=== PATIENT | male | born 1945 | race Caucasian/White ===

== ENCOUNTER → 2021-12-31 13:00 | Outpatient (CLI) | payer MEDICARE, OTHER, SELFPAY ==
[2021-12-31 14:06] LABS: COVID19 -Nasal RAPID Negative (Negative)
== END ==
PROVIDERS: Visit Provider Surgery
DX: Z20.822 Contact with and (suspected) exposure to COVID-19 (principal); Z01.812 Encounter for preprocedural laboratory examination
CPT/HCPCS: 87635; C9803

== ENCOUNTER 2022-01-01 10:19 | Day surgery (SDC) | payer MEDICARE, OTHER, SELFPAY ==
--- NOTE | 2022-01-01 | PATH_ITS ---
[facility] Accession Number: [id number] . 01 Material submitted: . colon - DESCENDING COLON POLYP . 01 Diagnosis: Descending Colon, Polyp, Biopsy: Colonic mucosa with a small benign lymphoid aggregate and no other diagnostic abnormality. Additional levels were examined. Negative for dysplasia and malignancy. MRV 01/06/2022 1648 Local . 01 Electronically signed: . Sanam Gonzalez MD, Pathologist NPI- [id number] . 01 Gross description: . DESCENDING COLON POLYP: Received in formalin is 1 fragment(s) of aquino, soft tissue measuring 0.3 x 0.2 x 0.1 cm submitted entirely in 1 cassette(s) /CPE 01/02/2022 0512 Local . 01 Pathologist provided ICD-10: K63.5 . 01 CPT . 524102 Specimen Comment: A courtesy copy of this report has been sent to [phone] Performed at: 01 [facility] [address] [place] [address] [address], [place], [place] [id number] MD Juan Cazares MD Phone: [phone]
[2022-01-01 10:45] VITALS: BP 144/83; PULSE 58; RESP 16; TEMP 36.6; O2SAT 96
[2022-01-01 10:46] VITALS: BMI 25.4
[2022-01-01] MEDS: SODIUM CHLORIDE 0.9% 1,000 ML 84 ML IV (11:09)
--- NOTE | 2022-01-01 12:41 | PM.HP.1 ---
History of Present Illness History of Present Illness Date Patient Seen: 01/01/22 Chief complaint: Colonoscopy Narrative: Follow-up 5 year colonoscopy with history of polyps Patient History Medical History (Updated 01/01/22 @ 10:45 by Hoda Hung RN) Bilateral inguinal hernia Elevated cholesterol Hx of fracture of ankle Surgical History (Updated 01/01/22 @ 10:45 by Hoda Hung RN) History of arthroplasty of finger of right hand Family & Social History Social History: household members spouse Tobacco & Substance use: Smoking Status Former smoker alcohol intake current Substance Use Type does not use Meds Home Medications and Allergies Home Medications Medication Instructions Recorded Confirmed Type aspirin 81 mg DAILY 01/01/22 01/01/22 History pravastatin 40 mg tablet 1 tab DAILY 01/01/22 01/01/22 History Allergies Allergy/AdvReac Type Severity Reaction Status Date / Time sodium penathol AdvReac Unknown Vomiting Uncoded 01/01/22 10:38 Exam Vital Signs (past 8 hours): - 01/01/22 10:45 Temperature 97.9 F Pulse Rate 58 L Respiratory Rate 16 Blood Pressure 144/83 H Pulse Oximetry 96 Oxygen Delivery Method Room Air Oxygen Delivery Method Room Air Narrative Exam Narrative: Oropharynx free of lesions Chest clear to auscultation percussion Cardiac exam reveals no S3 or murmur Assessment & Plan Assessment & Plan narrative: History of adenomatous polyps with need for follow-up colonoscopy. Risks, benefits, alternatives have been explained. Time Spent With Patient Critical Care time: I spent a total of [] minutes of critical care time on this patient's care today; this time is exclusive of procedural time.
--- NOTE | 2022-01-01 12:42 | PM.OP.COLON ---
Operative Date/Time/Diagnoses Date of procedure: 01/01/22 Pre-op diagnosis: See indication and findings Procedure & Clinicians Study performed: Colonoscopy Indications: History of adenomatous polyps Surgeon: Kimber Hidalgo Procedure Notes Procedure in detail: After informed consent was obtained the patient placed in left lateral decubitus position. The video colonoscope was introduced the rectum slowly advanced cecum. On slow withdrawal mucosa was carefully examined. Preparation was good. The scope was removed. The patient tolerated procedure well. Blood loss none Complications none Sedation mac Findings 1. Scattered rare diverticulosis 2. Small 5 mm polyp versus inverted diverticulum in the transverse colon cold biopsied and removed x2 3. Otherwise negative colonoscopy to cecum Mr. Gayle should have his next colonoscopy at age 82 or 83.
[2022-01-01 13:05] VITALS: BP 102/61; PULSE 70; RESP 17; TEMP 36.5; O2SAT 93
[2022-01-01 13:11] VITALS: BP 112/71; PULSE 61; RESP 17; O2SAT 96
[2022-01-01 13:17] VITALS: BP 120/78; PULSE 77; RESP 14; O2SAT 96
[2022-01-01 13:23] VITALS: BP 120/75; PULSE 79; RESP 15; TEMP 36.6; O2SAT 96
--- NOTE | 2022-01-01 13:43 | SUR.PHASEII ---
[address] Hidalgo - patient may resume aspirin at any time. Patient informed.
== END 2022-01-01 13:40 | disposition home or self-care (01) ==
PROVIDERS: Referring Provider Internal Medicine Gastroenterology; Visit Provider Internal Medicine Gastroenterology
PROC: 0DJD8ZZ Inspection of Lower Intestinal Tract, Via Natural or Artificial Opening Endoscopic (ICD-10-PCS; CPT 45378; principal; 2022-01-01 12:30)
DX: Z86.010 Personal history of colon polyps (principal); Z12.11 Encounter for screening for malignant neoplasm of colon; K63.5 Polyp of colon; K57.30 Diverticulosis of large intestine without perforation or abscess without bleeding; E78.00 Pure hypercholesterolemia, unspecified; Z87.891 Personal history of nicotine dependence
CPT/HCPCS: 45380; J2704